=== PATIENT | female | born 1980 | race Caucasian/White ===

== ENCOUNTER 2019-02-07 10:12 | Emergency (ER) | payer MEDICAID, OTHER ==
[~2019-02-07] VITALS: Ht 162.6 cm; Wt 54.4 kg
[2019-02-07 10:17] VITALS: BP 103/64
[2019-02-07] MEDS ORDERED: PROPARACAINE OPHTH 0.5%, 15ML ONE (10:27)
--- NOTE | 2019-02-07 10:35 | NUR ---
FIRST CONTACT WITH PT. PT C/O WATERY, BLURRED VISION, PHOTOPHOBIA, PAIN TO OS X3 DAYS; "FEELS LIKE SOMETHING IN IT", DENIES INJ/TRAUMA. PT'S AOX4. RESPS EVEN AND UNLABORED.
[2019-02-07] MEDS ORDERED: ONDANSETRON ODT 4 MG ONE (10:52)
--- NOTE | 2019-02-07 10:55 | NUR ---
PT MEDICATED PER EMAR. PT TOLERATED WELL.
[2019-02-07] MEDS ORDERED: PROPARACAINE OPHTH 0.5%, 15ML EACHEYE ONE (11:00)
[2019-02-07] MEDS ORDERED: FLUORESCEIN OPHTHALMIC 1 MG STRIP EACHEYE ONE (11:00)
[2019-02-07] MEDS ORDERED: ONDANSETRON ODT 4 MG PO ONE (11:00)
--- NOTE | 2019-02-07 11:05 | NUR ---
Patient given discharge instructions and they have confirmed that they understand the instructions. Patient ambulatory with steady gait.
== END 2019-02-07 11:07 | disposition home or self-care (01) ==
LOC: ED 10:45
DX: S05.02XA Injury of conjunctiva and corneal abrasion without foreign body, left eye, initial encounter (principal); X58.XXXA Exposure to other specified factors, initial encounter; Y93.89 Activity, other specified; Y92.89 Other specified places as the place of occurrence of the external cause; Y99.8 Other external cause status
CPT/HCPCS: 99283; Q0162